=== PATIENT | female | born 1985 | race Caucasian/White ===

== ENCOUNTER 2021-09-17 19:14 | Emergency (ER) | payer BC ==
[2021-09-17] MEDS ORDERED: cefTRIAXone\\ROCEPHIN 1 GM VIAL ONE (19:52)
[2021-09-17] MEDS ORDERED: Dexamethasone 10 MG/ML VIAL ONE (19:52)
[2021-09-17] MEDS ORDERED: Sterile Water 10 ML ONE (19:53)
== END 2021-09-17 20:15 | disposition home or self-care (01) ==
LOC: CSHERS 19:14
DX: J18.9 Pneumonia, unspecified organism (principal); G43.909 Migraine, unspecified, not intractable, without status migrainosus; Z79.899 Other long term (current) drug therapy
CPT/HCPCS: 96372; 99283; J0696; J1100